=== PATIENT | male | born 1940 | race Caucasian/White ===

== ENCOUNTER 2018-05-22 10:00 | Emergency (ER) | payer OTHER ==
--- NOTE | 2018-05-22 10:10 | EDPHY ---
HPI/HX/ROS/PE/MDM Narrative: CHIEF COMPLAINT: Shortness of breath HPI: The patient is an anticoagulated (Eliquis) 78 y/o male with a history of DVT's, myelofibrosis, and hypertension complaining of shortness of breath onset 3 days ago. Several weeks ago the patient was diagnosed with bronchitis and a low platelet count. He was taken off of Eliquis for a short period of time due to the low platelet count and placed on an antibiotic course for the bronchitis ( which he completed 2 weeks ago). One week ago he started taking Eliquis again. On Thursday, 4 days ago, the patient drove from [place] to [place] to visit family. He was asymptomatic the first night in [place]. On Thursday, he started to feel short of breath and became anxious while sleeping. For the next several nights his symptoms have not improved. These symptoms do not feel similar to his recent bronchitis diagnosis and he hasn't had these symptoms in the past while visiting [place]. As his symptoms have not improved he decided to present to the emergency department. In addition to his dyspnea, he does have pedal edema during the day, but this is improved if he elevates his legs. No fever, headache, chest pain, abdominal pain, urinary or bowel complaints, numbness, paresthesias. REVIEW OF SYSTEMS: Aside from elements discussed in the HPI, a comprehensive 10 system review of systems is otherwise negative. PMH: Bilateral DVT, hypertension, myelofibrosis, splenomegaly SOCIAL HISTORY: at bedside, visiting from [place], retired PHYSICAL EXAM: General: Patient is alert, in no acute distress. ENT: Eyes are normal to inspection. ENT inspection normal. Neck: Normal inspection. Full range of motion. Respiratory: No respiratory distress. Breath sounds normal bilaterally. Cardiovascular: Regular rate and rhythm. Strong peripheral pulses. Normal cap refill. Abdomen: The abdomen is nontender to palpation. There are no peritoneal signs. There are normal bowel sounds. Back: Normal to inspection. No tenderness to palpation. Skin: Normal color. No rash. Warm and dry. Extremities: Normal appearance. Full range of motion. Neuro: Oriented x3. Normal motor function. Normal sensory function. ED Course: 1019: EKG was ordered and interpreted by myself. Please see [employer] system for official reading. 1151: I spoke with the radiologist who reports that the patient has negative CTPA findings. 1229: Reassessed patient and discussed laboratory and imaging findings. He will need to follow up with his PCP within the next week. Return precautions provided ; patient is comfortable with this plan. MDM: This patient presents with shortness of breath over the last few days, which [place] His symptoms are worse at night, but are not accompanied by chest pain. We performed an extensive workup including ECG, troponin and CTA of the chest to rule out ACS, CHF, PNA, Ptx, and PE. The etiology of his symptoms is unclear, but certainly seem to include dyspnea secondary to altitude. I offered him admission to the hospital for further workup and observation but he declines. - Data Points Imaging Results: Imaging Impressions Chest X-Ray 05/22/18 10:12 Impression: No acute abnormality. Please also reference the subsequent CTPA, requested by Dr. Ann, and separately reported. Chest/Thorax CTA 05/22/18 11:11 Impression: 1. There is no CT evidence of pulmonary artery thromboemboli 2. Profound splenomegaly. The patient carries a diagnosis of myelofibrosis. 3. Minimal LAD coronary artery calcification. 4. Sequela of old granulomatous disease. Findings were discussed with Arturo Ann MD at 11:51, on 05/22/2018. Imaging: Discussed imaging studies w/ call box wirer Radiologist, I viewed and interpreted images myself Laboratory Results: Laboratory Results 05/22/18 10:25 05/22/18 10:25 05/22/18 05/22/18 05/22/18 12:12 10:25 10:25 WBC RBC Hgb Hct MCV MCH MCHC RDW Plt Count MPV Neut % (Auto) Lymph % (Auto) Bullitt % (Auto) Eos % (Auto) Baso % (Auto) Nucleat RBC Rel Count Absolute Neuts (auto) Absolute Lymphs (auto) Absolute Monos (auto) Absolute Eos (auto) Absolute Basos (auto) Absolute Nucleated RBC Immature Gran % Seg Neutrophils % Band Neutrophils % Lymphocytes % Monocytes % Eosinophils % Basophils % Metamyelocytes % Myelocytes % Promyelocytes % Blast Cells % Immature Gran # Absolute Seg Neuts Absolute Band Neuts Absolute Lymphocytes Absolute Monocytes Absolute Eosinophils Absolute Basophils Absolute Metamyelocyte Absolute Myelocytes Absolute Promyelocytes Absolute Plasma Cells Nucleated RBCs Absolute Blast Cells Plasma Cells % Platelet Estimate Polychromasia Hypochromasia Microcytic Cells Elliptocytes Smear Review By D-Dimer 0.68 ug/mLFEU H ug/mLFEU (0.00-0.50) Sodium 139 mEq/L mEq/L (135-145) Potassium 4.2 mEq/L mEq/L (3.3-5.0) Chloride 103 mEq/L mEq/L (97-110) Carbon Dioxide 27 mEq/l mEq/l (22-31) Anion Gap 9 mEq/L mEq/L (6-14) BUN 17 mg/dL mg/dL (7-23) Creatinine 1.1 mg/dL mg/dL (0.7-1.3) Estimated GFR > 60 Glucose 102 mg/dL H mg/dL (70-100) Calcium 9.4 mg/dL mg/dL (8.5-10.4) POC Troponin I 0.00 ng/mL ng/mL (0.00-0.08) NT-Pro-B Natriuret Pep 723 pg/mL H pg/mL (0-450) 05/22/18 10:25 WBC 24.39 10^3/uL H 10^3/uL (3.80-9.50) RBC 4.51 10^6/uL 10^6/uL (4.40-6.38) Hgb 13.4 g/dL L g/dL (13.7-17.5) Hct 42.5 % % (40.0-51.0) MCV 94.2 fL fL (81.5-99.8) MCH 29.7 pg pg (27.9-34.1) MCHC 31.5 g/dL L g/dL (32.4-36.7) RDW 21.8 % H % (11.5-15.2) Plt Count 61 10^3/uL L 10^3/uL (150-400) MPV TNP Neut % (Auto) Not Reported Lymph % (Auto) Not Reported Bullitt % (Auto) Not Reported Eos % (Auto) Not Reported Baso % (Auto) Not Reported Nucleat RBC Rel Count Not Reported Absolute Neuts (auto) Not Reported Absolute Lymphs (auto) Not Reported Absolute Monos (auto) Not Reported Absolute Eos (auto) Not Reported Absolute Basos (auto) Not Reported Absolute Nucleated RBC Not Reported Immature Gran % Not Reported Seg Neutrophils % 60.8 % % Band Neutrophils % 10.8 % % Lymphocytes % 4.9 % % Monocytes % 0.0 % % Eosinophils % 1.9 % % Basophils % 2.0 % % Metamyelocytes % 1.0 % % Myelocytes % 13.7 % % Promyelocytes % 3.9 % % Blast Cells % 1.0 % % Immature Gran # Not Reported Absolute Seg Neuts 14.83 10^3/uL H 10^3/uL (1.70-6.50) Absolute Band Neuts 2.63 10^3/uL H 10^3/uL (0.00-0.70) Absolute Lymphocytes 1.20 10^3/uL 10^3/uL (1.00-3.00) Absolute Monocytes 0.00 10^3/uL L 10^3/uL (0.30-0.80) Absolute Eosinophils 0.46 10^3/uL H 10^3/uL (0.03-0.40) Absolute Basophils 0.49 10^3/uL H 10^3/uL (0.02-0.10) Absolute Metamyelocyte 0.24 10^3/mL H 10^3/mL (0.00-0.00) Absolute Myelocytes 3.34 10^3/mL H 10^3/mL (0.00-0.00) Absolute Promyelocytes 0.95 10^3/uL H 10^3/uL (0.00-0.00) Absolute Plasma Cells 0.00 10^3/uL 10^3/uL (0.00-0.00) Nucleated RBCs 1.0 /100 WBC H /100 WBC (0-0) Absolute Blast Cells 0.24 10^3/uL H 10^3/uL (0.00-0.00) Plasma Cells % 0.0 % % Platelet Estimate DECREASED L (ADEQ) Polychromasia 1+ H Hypochromasia 1+ H Microcytic Cells 1+ H Elliptocytes 1+ H Smear Review By Pending D-Dimer Sodium Potassium Chloride Carbon Dioxide Anion Gap BUN Creatinine Estimated GFR Glucose Calcium POC Troponin I NT-Pro-B Natriuret Pep Point of Care Test Results: Chemistry 05/22/18 12:12 POC Troponin I 0.00 ng/mL ng/mL (0.00-0.08) General Time Seen by Provider: 05/22/18 10:05 Initial Vital Signs: Initial Vital Signs Temperature (C) 36.5 C 05/22/18 10:08 Heart Rate 66 05/22/18 10:08 Respiratory Rate 20 05/22/18 10:08 Blood Pressure 191/107 H 05/22/18 10:08 O2 Sat (%) 91 L 05/22/18 10:08 O2 Delivery Mode Room Air Allergies/Adverse Reactions: No Known Allergies Allergy (Unverified 05/22/18 10:08) Home Medications: Medication Instructions Recorded Eliquis 05/22/18 Flonase Allergy Relief 05/22/18 Hydrochlorothiazide 05/22/18 Jakafi 05/22/18 Verapamil 05/22/18 Departure - Departure Disposition: Home, Routine, Self-Care Clinical Impression: Shortness of breath Condition: Good Instructions: Shortness of Breath (ED) Additional Instructions: Follow-up with your primary doctor within 72 hours. Return to the Emergency Department for fever, chest pain, shortness of breath, increasing pain or other worsening of condition. Referrals: RYAN GUEVARA [Other] - As per Instructions Report Scribed for: Arturo Ann Report Scribed by: Kareen Wagner Date of Report: 05/22/18 Time of Report: 10:10 Physician Review and Approval Statement: Portions of this note were transcribed by an ED scribe. I personally performed the history, physical exam, and medical decision making; and confirm the accuracy of the information in the transcribed note.
[2018-05-22 11:10] LABS: PLATELET COUNT 61 10^3/uL (150-400)
[2018-05-22] MEDS ORDERED: IOPAMIDOL (ISOVUE 370) 100 ML BTL IV ONE (11:17)
[2018-05-22 12:39] VITALS: BP 157/87
--- NOTE | 2018-05-28 12:07 | CPEKG ---
Test Reason : OPEN Blood Pressure : / mmHG Vent. Rate : 089 BPM Atrial Rate : 087 BPM P-R Int : 202 ms QRS Dur : 098 ms QT Int : 384 ms P-R-T Axes : 088 -24 067 degrees QTc Int : 468 ms Sinus rhythm Ventricular bigeminy Borderline left axis deviation Confirmed by Arturo Ann ([id number]) on 05/28/2018 12:06:58 PM Referred By: Confirmed By:Arturo Ann
== END 2018-05-22 12:39 | disposition home or self-care (01) ==
DX: R06.02 Shortness of breath (principal); I10 Essential (primary) hypertension; D75.81 Myelofibrosis; Z79.01 Long term (current) use of anticoagulants; Z86.718 Personal history of other venous thrombosis and embolism
CPT/HCPCS: 71046; 71275; 93005; 99285; Q9967; 84484-PO